=== PATIENT | female | born 1960 | race Caucasian/White ===

== ENCOUNTER 2016-09-19 10:45 | Emergency (ER) | payer BC ==
[2016-09-19] MEDS ORDERED: BYSTOLIC5 M1 PO (11:02)
[2016-09-19] MEDS ORDERED: RYTHMOL SR225 M1 PO (11:03)
[2016-09-19] MEDS ORDERED: ALDACTONE100 M1 PO (11:03)
[2016-09-19] MEDS ORDERED: XARELTO20 M1 PO (11:03)
[2016-09-19] MEDS ORDERED: PEPCID20 M1 PO (11:04)
[2016-09-19] MEDS ORDERED: EFFEXOR XR75 M1 PO (11:04)
[2016-09-19] MEDS ORDERED: ANIMAL CHEWS1 EACH PO (11:05)
[2016-09-19 11:27] LABS: BASO % 0.5 % (0-2); EOS % 2.4 % (0-7); EOSINOPHIL ABSOLUTE COUNT 0.2 tho/cmm (0.0-0.7); HCT-HEMATOCRIT 38.5 % (34.0-49.0); HGB-HEMOGLOBIN 12.9 gm/dl (12.0-15.5); IMMATURE GRANULOCYTES ABSOLUTE 0.02 tho/cmm (0-0.03); IMMATURE GRANULOCYTES PERCENT 0.3 % (0-0.3); LYMPH % 14.4 % (20-45); LYMPH ABSOLUTE COUNT 1.1 tho/cmm (0.8-4.5); MCH (MEAN CORPUSCULAR HGB) 31.7 pg (28.0-32.0); MCHC MEAN CORPUSCULAR HGB CONC 33.5 % (32.0-36.0); MCV (MEAN CELL VOLUME) 94.6 fl (82.0-96.0); MEAN PLATELET VOLUME 9.4 cmc (9.4-12.4); MONO % 5.1 % (0-12); MONOCYTE ABSOLUTE COUNT 0.4 tho/cmm (0.0-1.2); NEUTROPHIL ABSOLUTE COUNT 6.1 tho/cmm (1.6-8.0); NEUTROPHIL-AUTOMATED 6.1 tho/cmm (1.6-8.0); NEUTROPHILS % 77.3 % (40-80); PLATELET COUNT 356 tho/cmm (150-450); RED BLOOD COUNT 4.07 mil/cmm (4.00-5.20); RED CELL DISTRIBUTION WIDTH 12.6 % (12.4-16.4); WHITE BLOOD COUNT 7.9 tho/cmm (4.0-10.0)
[2016-09-19 11:40] LABS: ANION GAP 17 mmol/L (0-20); BLOOD UREA NITROGEN 22 mg/dl (6-24); CALCIUM 9.5 mg/dl (8.5-10.5); CARBON DIOXIDE-VENOUS 20 mmol/L (22-32); CHLORIDE 107 mmol/l (96-110); CREATININE 1.23 mg/dl (0.50-1.10); GLUCOSE 128 mg/dL (70-110); SODIUM 139 mmol/L (135-145); eGFR VALUE FOR BLACK 57 mL/Min
[2016-09-19 11:42] LABS: POTASSIUM 4.8 mmol/L (3.7-5.1)
[2016-09-19 15:59] LABS: URINE BILIRUBIN NEGATIVE (NEG); URINE BLOOD LARGE (NEG); URINE GLUCOSE (UA) NEGATIVE (NEG); URINE KETONE MODERATE (NEG); URINE LEUKOCYTE ESTERASE POSITIVE (NEG); URINE NITRITE POSITIVE (NEG); URINE PROTEIN MODERATE (NEG)
[2016-09-19 16:00] LABS: URINE APPEARANCE CLOUDY; URINE COLOR BROWN
[2016-09-19 16:10] LABS: URINE BACTERIA 1+; URINE EPITHELIAL CELLS RARE /[HPF] (0-10); URINE RBC FULL FIELD /[HPF] (0-5); URINE WBC 80-100 /[HPF] (0-5)
[2016-09-19] MEDS ORDERED: CIPRO500 M2 PO (16:25)
[2016-09-19] MEDS ORDERED: PERCOCET 5-3251 EACH PO (16:25)
[2016-09-19] MEDS ORDERED: FLOMAX0.4 M1 PO (16:25)
[2016-09-19] MEDS ORDERED: ZOFRAN4 M2 PO (16:25)
== END 2016-09-19 16:35 ==
LOC: EDMED 10:45
PROVIDERS: Emergency Medicine
DX: N13.2 Hydronephrosis with renal and ureteral calculous obstruction (principal); N39.0 Urinary tract infection, site not specified; I48.91 Unspecified atrial fibrillation; Z87.442 Personal history of urinary calculi; Z90.89 Acquired absence of other organs; Z90.49 Acquired absence of other specified parts of digestive tract; Z79.899 Other long term (current) drug therapy
CPT/HCPCS: J1170; J2270; J2405; J7030